=== PATIENT | male | born 1985 | race Hispanic/Latino ===

== ENCOUNTER 2020-12-27 11:22 | Outpatient (CLI) | payer OTHER ==
[2020-12-27 12:35] LABS: Blood Urea Nitrogen 17 mg/dL (9-20)
--- NOTE | 2020-12-27 13:50 | Cat Scan Report ---
CT ABDOMEN AND PELVIS WITH CONTRAST INDICATION / CLINICAL INFORMATION: RENAL STONES OMNI 300 100ML . TECHNIQUE: Axial CT images were obtained through the abdomen and pelvis after IV contrast. All CT sc ans at this location are performed using CT dose reduction for ALARA by means of automated exposure c ontrol. COMPARISON: None available. FINDINGS: LOWER CHEST: No significant abnormality. LIVER: There is focal fatty infiltration along the falciform ligament. There is a 1.2 x 1.1 cm round enhancing lesion adjacent to the fatty infiltration on series 2 image 57. GALLBLADDER: No significant abnormality. BILE DUCTS: No significant abnormality. PANCREAS: No significant abnormality. SPLEEN: No significant abnormality. ADRENALS: No significant abnormality. RIGHT KIDNEY / URETER: 3 mm nonobstructing stone in the lower pole. [id number] subcentimeter hypodensi ties are too small to characterize but likely represent cysts. LEFT KIDNEY / URETER: Punctate nonobstructing stones. Subcentimeter hypodensities are too small to ch aracterize but likely represent cysts. STOMACH / SMALL BOWEL: No significant abnormality. COLON: Mild colonic stool burden. APPENDIX: No significant abnormality. PERITONEUM: No free fluid. No free air. No fluid collection. LYMPH NODES: No significant adenopathy. AORTA / ARTERIES: No significant abnormality. IVC / VEINS: No significant abnormality. URINARY BLADDER: No significant abnormality. REPRODUCTIVE ORGANS: No significant abnormality. ADDITIONAL FINDINGS: None. SKELETAL SYSTEM: There are degenerative changes in the spine including multilevel Schmorl's nodes. No aggressive osseous lesion. IMPRESSION: 1. Bilateral small nonobstructing renal calculi. 2. Incidental small enhancing lesion in the left hepatic lobe is nonspecific but favors hemangioma. A follow-up CT or MRI could be performed to ensure stability if clinically indicated. Signer Name: Foster Gao MD Signed: 12/27/2020 1:45 PM Workstation Name: [id number]
== END 2020-12-27 11:23 | disposition home or self-care (01) ==
LOC: CT 11:22
PROVIDERS: ATTEND Family Medicine
DX: K76.0 Fatty (change of) liver, not elsewhere classified (principal); N20.0 Calculus of kidney; M51.46 Schmorl's nodes, lumbar region
CPT/HCPCS: 36415; 74177; 82565; 84520; Q9967

== ENCOUNTER 2021-05-05 04:02 | Emergency (ER) | payer OTHER ==
[2021-05-05] MEDS ORDERED: fentaNYL 100 MCG/2 ML INJ IV ONE (07:41)
[2021-05-05] MEDS ORDERED: PANTOPRAZOLE 40 MG INJ IV ONE (07:41)
[2021-05-05] MEDS ORDERED: ONDANSETRON 4 MG/2 ML INJ IV ONE (07:41)
[2021-05-05] MEDS ORDERED: SODIUM CHLORIDE 0.9% 1000 ML 1,000 ML IV ONE (07:43)
--- NOTE | 2021-05-05 07:48 | Emergency Department Report ---
HPI - General Chief Complaint: GI Bleed Time Seen by Provider: 05/05/21 07:34 - HPI HPI: Room 37 Patient is a 36-year-old male present with a chief complaint of epigastric/chest pain. The patient is a [facility] inmate was brought in for concern for possible upper GI bleed. The patient states he has had intermittent epigastric pain since yesterday however over the evening he developed nausea vomiting. The patient states the last time he vomited his emesis was dark brown in color looking like old blood. Patient states his last bowel movement occurred yesterday but he did not look at the stool so he is uncertain of the color. ED Past Medical Hx - Past Medical History Hx Hypertension: Yes Additional medical history: Kidney stones - Surgical History Past Surgical History?: No - Family History Family history: no significant - Social History Smoking Status: Never Smoker Substance Use Type: None (Denies illicit drug use) - Medications Home Medications: Home Medications Medication Instructions Recorded Confirmed Last Taken Type HYDROcodone/APAP 5-325 [Cochise 1 - 2 each PO Q6HR PRN #10 tablet 05/05/21 Unknown Rx 5/325] Ondansetron [Zofran ODT TAB] 8 mg PO Q8HR #20 tab.rapdis 05/05/21 Unknown Rx Pantoprazole [Protonix] 40 mg PO QDAY #30 tablet 05/05/21 Unknown Rx ED Review of Systems ROS: Stated complaint: BLOOD IN VOMIT/CHEST PAIN Other details as noted in HPI Constitutional: no symptoms reported Eyes: denies: eye pain ENT: denies: throat pain Respiratory: no symptoms reported Cardiovascular: chest pain Endocrine: no symptoms reported Gastrointestinal: abdominal pain, nausea, vomiting, hematemesis Genitourinary: denies: dysuria Musculoskeletal: denies: back pain Neurological: denies: headache Physical Exam - Physical Exam Vital Signs: Vital Signs 05/05/21 07:25 Temperature 98.5 F Pulse Rate 79 Respiratory 14 Rate Blood Pressure 140/107 [Left] O2 Sat by Pulse 99 Oximetry Physical Exam: GENERAL: The patient is well-developed well-nourished male lying on stretcher not appearing to be in acute distress. [] HEENT: Normocephalic. Atraumatic. Extraocular motions are intact. Patient has moist mucous membranes. NECK: Supple. Trachea midline CHEST/LUNGS: Clear to auscultation. There is no respiratory distress noted. HEART/CARDIOVASCULAR: Regular. There is no tachycardia. There is no gallop rub or murmur. ABDOMEN: Abdomen is soft, with tenderness to palpation in the epigastric region. Patient has normal bowel sounds. There is no abdominal distention. There is no rebound or guarding SKIN: There is no rash. There is no edema. There is no diaphoresis. NEURO: The patient is awake, alert, and oriented. The patient is cooperative. The patient has no focal neurologic deficits. The patient has normal speech. GCS 15 MUSCULOSKELETAL: There is no evidence of acute injury. 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 Moon-initiated patient on PPI and have [facility] to outpatient appointment ED Medical Decision Making - Lab Data Result diagrams: 05/05/21 08:13 05/05/21 08:13 Laboratory Tests 05/05/21 05/05/21 05/05/21 08:13 08:13 08:13 WBC 6.2 RBC 5.19 H Hgb 14.5 Hct 43.8 MCV 84 MCH 28 MCHC 33 RDW 13.4 Plt Count 305 Lymph % (Auto) 28.5 Hinds % (Auto) 10.1 H Eos % (Auto) 0.9 Baso % (Auto) 0.6 Lymph # (Auto) 1.8 Hinds # (Auto) 0.6 Eos # (Auto) 0.1 Baso # (Auto) 0.0 Seg Neutrophils % 59.9 Seg Neutrophils # 3.7 PT 15.0 H INR 1.06 APTT 32.6 Sodium 140 Potassium 4.1 Chloride 104.7 Carbon Dioxide 22 Anion Gap 17 BUN 9 Creatinine 1.0 Estimated GFR > 60 BUN/Creatinine Ratio 9 Glucose 92 Calcium 9.5 Total Bilirubin 0.60 AST 19 ALT 16 Alkaline Phosphatase 83 Troponin T < 0.010 Total Protein 7.2 Albumin 4.6 Albumin/Globulin Ratio 1.8 Lipase 23 Blood Type Antibody Screen 05/05/21 05/05/21 08:13 12:24 WBC RBC Hgb Hct MCV MCH MCHC RDW Plt Count Lymph % (Auto) Hinds % (Auto) Eos % (Auto) Baso % (Auto) Lymph # (Auto) Hinds # (Auto) Eos # (Auto) Baso # (Auto) Seg Neutrophils % Seg Neutrophils # PT INR APTT Sodium Potassium Chloride Carbon Dioxide Anion Gap BUN Creatinine Estimated GFR BUN/Creatinine Ratio Glucose Calcium Total Bilirubin AST ALT Alkaline Phosphatase Troponin T < 0.010 Total Protein Albumin Albumin/Globulin Ratio Lipase Blood Type O POSITIVE Antibody Screen Negative - EKG Data -: EKG Interpreted by Ia EKG shows normal: sinus rhythm Rate: normal - EKG Data When compared to previous EKG there are: previous EKG unavailable Interpretation: nonspecific ST-T wave marshal (T wave inversions in leads aVL, V2, V3) - Radiology Data Radiology results: report reviewed (CT abdomen pelvis), image reviewed (CT abdomen) [address] [address] Cat Scan Report Signed Patient: LADAN CRAFT MR#: [id number] : 1985 Acct:[id number] Age/Sex: 36 / M ADM Date: 05/05/21 Loc: ED Attending Dr: Ordering Physician: ROSALIA PIERCE MD Date of Service: 05/05/21 Procedure(s): CT abdomen pelvis w con Accession Number(s): [id number] cc: ROSALIA PIERCE MD CT ABDOMEN AND PELVIS WITH IV CONTRAST, 05/05/2021 INDICATION: Epigastric pain. Vomiting. TECHNIQUE: Following the administration of intravenous contrast, multiple axial CT images of the abdomen and pelvis were acquired. Sagittal and coronal reformats were obtained. All CT performed at this facility utilize dose r eduction techniques including automated exposure control, iterative reconstruction and weight based dosing when appropriate to reduce patient radiation dose to as low as reasonably achievable. COMPARISON: CT of the abdomen and pelvis, 12/27/2020 FINDINGS: Lung bases: Limited imaging of the bilateral l rainer bases demonstrates no focal abnormality. ABDOMEN: LIVER/GALL BLADDER/BILE DUCTS: The 8 mm enhancing lesion adjacent to the falciform ligament is again noted and appears unchanged. The gallbladder appears normal. PANCREAS: No significant abnormality. SPLEEN: No significant abnormality. ADRENALS: No significant abnormality. RIGHT KIDNEY / URETER: Several small right renal cysts are noted. There is a nonobstructing 3 mm stone in the lower pole. LEFT KIDNEY / URETER: No significant abnormality. AORTA: The abdominal aorta is normal in caliber. STOMACH AND SMALL BOWEL: No significant abnormality. COLON: No significant abnormality. APPENDIX: The appendix is visualized and appears normal. PELVIS: There is marked distention of the urinary bladder. The prostate gland appears normal. There is no free pelvic fluid or adenopathy. BONES AND SOFT TISSUES: Moderate bony degenerative changes of the thoracolumbar spine are again noted related to multilevel Schmorl's nodes. Soft tissue structures appear grossly normal. IMPRESSION: 1. Marked distention of the urinary bladder. 2. No evidence of acute inflammatory or obstructive process within the abdomen or pelvis. Signer Name: Gris Blackmon MD Signed: 05/05/2021 11:39 AM Workstation Name: [id number] Transcribed By: EB Dictated By: Gris Blackmon MD Electronically Authenticated By: Gris Blackmon MD Signed Date/Time: 05/05/21 1139 DD/ 32 TD/TT: Print Cancel - Differential Diagnosis Upper GI bleed, peptic ulcer disease, pancreatitis, ACS Critical care attestation.: If time is entered above; I have spent that time in minutes in the direct care of this critically ill patient, excluding procedure time. ED Disposition Clinical Impression: Acute abdominal pain, Gastritis Disposition: HOME / SELF CARE / HOMELESS Is pt being admited?: No Does the pt Need Aspirin: No Condition: Stable Instructions: Gastritis, Adult, Abdominal Pain, Adult Additional Instructions: Return to the emergency department should you develop worsening symptoms, inability to tolerate food or liquids, high fever or any other concerns Prescriptions: HYDROcodone/APAP 5-325 [Cochise 5/325] 1 - 2 each PO Q6HR PRN #10 tablet PRN Reason: Pain Pantoprazole [Protonix] 40 mg PO QDAY #30 tablet Ondansetron [Zofran ODT TAB] 8 mg PO Q8HR #20 tab.rapdis Referrals: PRIMARY MD ZAID [Primary Care Provider] - 3-5 Days CHEYANNE MOON MD [Staff Physician] - 7-10 days (Dr. 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 Please follow-up with him for further evaluation) Forms: Accompanied Note Time of Disposition: 13:47
[2021-05-05 08:42] LABS: Basophils % (Auto) 0.6 % (0.0-1.8); Eosinophils # (Auto) 0.1 K/mm3 (0.0-0.4); Eosinophils % (Auto) 0.9 % (0.0-4.3); Hematocrit 43.8 % (35.5-45.6); Hemoglobin 14.5 gm/dl (11.8-15.2); Lymphocytes # (Auto) 1.8 K/mm3 (1.2-5.4); Lymphocytes % (Auto) 28.5 % (13.4-35.0); Mean Corpuscular HGB Conc 33 % (32-34); Mean Corpuscular Volume 84 fl (84-94); Monocytes # (Auto) 0.6 K/mm3 (0.0-0.8); Monocytes % (Auto) 10.1 % (0.0-7.3); Platelet Count 305 K/mm3 (140-440); Red Blood Count 5.19 M/mm3 (3.65-5.03); Red Cell Distribution Width 13.4 % (13.2-15.2)
[2021-05-05 09:08] LABS: INR 1.06 (0.87-1.13)
[2021-05-05 09:09] LABS: Partial Thromboplastin Time 32.6 Sec. (24.2-36.6)
[2021-05-05 09:12] LABS: Alanine Aminotransferase 16 units/L (7-56); Albumin 4.6 g/dL (3.9-5); BUN/Creatinine Ratio 9; Blood Urea Nitrogen 9 mg/dL (9-20); Calcium 9.5 mg/dL (8.4-10.2); Hemolysis Index 50
--- NOTE | 2021-05-05 11:43 | Cat Scan Report ---
CT ABDOMEN AND PELVIS WITH IV CONTRAST, 05/05/2021 INDICATION: Epigastric pain. Vomiting. TECHNIQUE: Following the administration of intravenous contrast, multiple axial CT images of the abdo men and pelvis were acquired. Sagittal and coronal reformats were obtained. All CT performed at this facility utilize dose reduction techniques including automated exposure control, iterative reconstru ction and weight based dosing when appropriate to reduce patient radiation dose to as low as reasonab ly achievable. COMPARISON: CT of the abdomen and pelvis, 12/27/2020 FINDINGS: Lung bases: Limited imaging of the bilateral lung bases demonstrates no focal abnormality. ABDOMEN: LIVER/GALL BLADDER/BILE DUCTS: The 8 mm enhancing lesion adjacent to the falciform ligament is again noted and appears unchanged. The gallbladder appears normal. PANCREAS: No significant abnormality. SPLEEN: No significant abnormality. ADRENALS: No significant abnormality. RIGHT KIDNEY / URETER: Several small right renal cysts are noted. There is a nonobstructing 3 mm ston e in the lower pole. LEFT KIDNEY / URETER: No significant abnormality. AORTA: The abdominal aorta is normal in caliber. STOMACH AND SMALL BOWEL: No significant abnormality. COLON: No significant abnormality. APPENDIX: The appendix is visualized and appears normal. PELVIS: There is marked distention of the urinary bladder. The prostate gland appears normal. There i s no free pelvic fluid or adenopathy. BONES AND SOFT TISSUES: Moderate bony degenerative changes of the thoracolumbar spine are again noted related to multilevel Schmorl's nodes. Soft tissue structures appear grossly normal. IMPRESSION: 1. Marked distention of the urinary bladder. 2. No evidence of acute inflammatory or obstructive process within the abdomen or pelvis. Signer Name: Gris Blackmon MD Signed: 05/05/2021 11:39 AM Workstation Name: [email or web address]
[2021-05-05 18:31] VITALS: BP 130/72
--- NOTE | 2021-05-08 09:17 | Electrocardiograph Report ---
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
== END 2021-05-05 17:45 | disposition home or self-care (01) ==
LOC: ED 04:02 → EEVIPCON 04:02 → ED 17:45
DX: K29.70 Gastritis, unspecified, without bleeding (principal); I10 Essential (primary) hypertension; Z87.442 Personal history of urinary calculi
CPT/HCPCS: 36415; 74177; 80053; 82271; 83690; 84484; 85025; 85610; 85730; 86850; 86900; 86901; 93005; 96361; 96374; 96375; 99284; C9113; J2405; J3010; J7030; Q9967; Q0162